=== PATIENT | female | born 1990 | race African-American/Black ===

== ENCOUNTER 2017-12-08 08:47 | Emergency (ER) | payer OTHER ==
[~2017-12-08] VITALS: Ht 157.5 cm; Wt 70.3 kg
[~2017-12-08 08:47] MED LIST: ACETAMINOPHEN325 M1 PO; BACTRIM DS TAB1 EACH PO; CARVEDILOL3.125 MG PO; IRON325; IRON325 PO; LEVOTHYROXIN0.025 MG PO; LEVOTHYROXIN0.112 M1; LEVOTHYROXINE0.05 MG; LOPRESSOR25 PO; MACROBID 100 M100 M1 PO; MACROBID 100 M100 M3 PO; NOHOMEMEDICATIONS; PHENAZOPYRIDIN200 M2 PO; PRENATAL PO; PROAIR HFA8.5 GM IH; PROPRANOLOL 1010 M1 PO; TAPAZOLE10 MG PO; TESSALON PERLE100 MG PO; ZANTAC 150MG T150 M1 PO; ZOFRAN ODT4 MG PO; ZOFRAN4 MG PO; ZPAK PO
[2017-12-08 09:15] LABS: URINE BILIRUBIN NEGATIVE (Negative); URINE BLOOD 3+ (Negative); URINE CLARITY CLOUDY; URINE GLUCOSE-RANDOM* NEGATIVE (Negative); URINE KETONES NEGATIVE (Negative); URINE PROTEIN (DIPSTICK) 2+ (Negative); URINE SPECIFIC GRAVITY >= 1.030 (1.005-1.035); URINE UROBILINOGEN 0.2 E.U./dl (0.2-1.0)
[2017-12-08 09:19] LABS: URINE COLOR DARK YELLOW; URINE LEUKOCYTES-REFLEX 2+ (Negative); URINE NITRITE-REFLEX POSITIVE (Negative)
[2017-12-08 09:44] LABS: CASTS None Seen /LPF (None Seen); CRYSTALS None Seen /LPF (None Seen); SQUAMOUS 0-3 Few /LPF (0-3); URINE RBC >20 Many /HPF (0-2); YEAST-REFLEX Present (None Seen)
[2017-12-08] MEDS ORDERED: PHENAZOPYRIDIN200 M2 PO (10:02)
[2017-12-08] MEDS ORDERED: KEFLEX500 M1 PO (10:02)
== END 2017-12-08 10:21 | disposition home or self-care (01) ==
LOC: ER 08:47
PROVIDERS: Physician Assistant
DX: N39.0 Urinary tract infection, site not specified (principal); E05.00 Thyrotoxicosis with diffuse goiter without thyrotoxic crisis or storm; F17.210 Nicotine dependence, cigarettes, uncomplicated

== ENCOUNTER 2019-06-18 13:09 | Emergency (ER) | payer OTHER ==
[~2019-06-18] VITALS: Ht 157.5 cm; Wt 77.1 kg
[~2019-06-18 13:09] MED LIST changes: +KEFLEX500 M1 PO
[2019-06-18] MEDS ORDERED: MIRENA1 EACH IY (13:26)
[2019-06-18 14:13] LABS: ABSOLUTE NEUTROPHILS 4.3 thou/uL (1.4-8.2); BASOPHILS 0.8 % (0.0-2.0); EOSINOPHILS 3.4 % (0.0-3.0); HEMATOCRIT 33.7 % (37.0-47.0); HEMOGLOBIN 11.2 gm/dL (12.0-15.0); LYMPHOCYTES 27.9 % (24.0-44.0); MCH 27.9 pg (26.0-34.0); MCHC 33.3 g/dL (28.0-37.0); MCV 83.7 fL (80.0-100.0); MONOCYTES 5.5 % (1.0-8.0); PLATELET COUNT 191 thou/uL (150-400); POLYS 62.4 % (36.0-66.0); RBC 4.02 mil/uL (4.20-5.00); RDW 13.7 % (10.5-14.5); WBC 6.9 thou/uL (4.0-11.0)
[2019-06-18 14:28] LABS: ANION GAP 9 mmol/L (7-16); BUN 13 mg/dL (7-18); CALCIUM 8.8 mg/dL (8.5-10.1); CHLORIDE 104 mmol/L (98-107); CO2 27 mmol/L (21-32); CREATININE 0.7 mg/dL (0.6-1.0); GLUCOSE 86 mg/dL (74-106); POTASSIUM 3.6 mmol/L (3.5-5.1); SODIUM 140 mmol/L (136-145)
[2019-06-18 14:37] LABS: ALBUMIN 3.4 g/dL (3.4-5.0); SGOT 28 U/L (15-37); SGPT 22 U/L (30-65); TOTAL BILIRUBIN 0.4 mg/dL (<0.1-1.0); TOTAL PROTEIN 6.7 g/dL (6.4-8.2); TROPONIN-I <0.06 ng/mL (<0.06)
[2019-06-18] MEDS ORDERED: CARAFATE 1 GM TA1 G1 PO (15:59)
[2019-06-18] MEDS ORDERED: OMEPRAZOLE 20 M20 M1 PO (15:59)
[2019-06-18 16:02] VITALS: BP 111/66
[2019-06-19] MEDS ORDERED: PREDNISONE 20 M20 MG PO (12:15)
[2019-06-19] MEDS ORDERED: PRILOSEC OTC20 MG PO (12:15)
--- NOTE | 2019-06-20 11:20 | EKG ---
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1990 Requested By: Nghia Boyd Order Number: [id number] MD: Luis Barrios Measurements Intervals [place] Rate: 68 P: 56 [place]: 156 QRS: 67 QRSD: 87 T: -9 QT: 404 QTc: 430 Interpretive Statements Sinus rhythm Nonspecific T abnormalities, anterior leads Compared to ECG 10/11/2015 19:01:58 Sinus tachycardia no longer present Right-axis deviation no longer present T-wave abnormality still present Electronically Signed On 06-20-2019 11:20:08 [employer] by Luis Barrios [email or web address] <ELECTRONICALLY SIGNED> By: Luis Barrios MD 06/20/19 1120 1312 1312 Luis Barrios MD /EPI
== END 2019-06-18 16:16 | disposition home or self-care (01) ==
LOC: ER 13:09
PROVIDERS: Physician Assistant
DX: K21.9 Gastro-esophageal reflux disease without esophagitis (principal); R07.89 Other chest pain; F17.210 Nicotine dependence, cigarettes, uncomplicated

== ENCOUNTER 2019-06-19 11:05 | Emergency (ER) | payer OTHER ==
[~2019-06-19] VITALS: Ht 157.5 cm; Wt 77.1 kg
[~2019-06-19 11:05] MED LIST changes: +CARAFATE 1 GM TA1 G1 PO; +MIRENA1 EACH IY; +OMEPRAZOLE 20 M20 M1 PO
[2019-06-19] MEDS ORDERED: PRILOSEC OTC20 MG PO (12:15)
[2019-06-19] MEDS ORDERED: PREDNISONE 20 M20 MG PO (12:15)
[2019-06-19 12:43] VITALS: BP 96/48
--- NOTE | 2019-06-20 11:23 | EKG ---
[address] [address] ELECTROCARDIOGRAM REPORT Name: LURDES KEARNS [id number] Admission: 06/19/19 Attend Phys: Discharge: 06/19/19 Date of : [birth year] Report #: [id number] THIS REPORT FOR: //name// 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1990 Requested By: Deng Crawford Order Number: [id number] MD: Luis Barrios Measurements Intervals [place] Rate: 87 P: 69 [place]: 149 QRS: 64 QRSD: 94 T: -27 QT: 384 QTc: 462 Interpretive Statements Sinus rhythm Borderline low voltage, extremity leads Nonspecific T abnrm, anterolateral leads Baseline wander in lead(s) V3 Compared to ECG 10/11/2015 19:01:58 Sinus tachycardia no longer present Right-axis deviation no longer present T-wave abnormality no longer present Electronically Signed On 06-20-2019 11:23:30 CERTIFIED MIDWIFE by Luis Barrios [email or web address] <ELECTRONICALLY SIGNED> By: Luis Barrios MD 06/20/19 1123 1114 1114 Luis Barrios MD /EPI
== END 2019-06-19 12:58 | disposition home or self-care (01) ==
LOC: ER 11:05
DX: K20.9 Esophagitis, unspecified (principal); E05.00 Thyrotoxicosis with diffuse goiter without thyrotoxic crisis or storm; F17.210 Nicotine dependence, cigarettes, uncomplicated; Z86.73 Personal history of transient ischemic attack (TIA), and cerebral infarction without residual deficits

== ENCOUNTER 2019-07-10 11:18 | Emergency (ER) | payer OTHER ==
[~2019-07-10] VITALS: Ht 157.5 cm; Wt 77.1 kg
[~2019-07-10 11:18] MED LIST changes: +PREDNISONE 20 M20 MG PO; +PRILOSEC OTC20 MG PO
[2019-07-10 11:45] LABS: URINE BLOOD 3+ (Negative); URINE CLARITY CLEAR; URINE COLOR YELLOW; URINE GLUCOSE-RANDOM* NEGATIVE (Negative); URINE KETONES 2+ (Negative); URINE LEUKOCYTES-REFLEX NEGATIVE (Negative); URINE NITRITE-REFLEX NEGATIVE (Negative); URINE PROTEIN (DIPSTICK) 1+ (Negative); URINE SPECIFIC GRAVITY >= 1.030 (1.005-1.035); URINE UROBILINOGEN 0.2 E.U./dl (0.2-1.0)
[2019-07-10 11:54] LABS: ABSOLUTE NEUTROPHILS 2.2 thou/uL (1.4-8.2); BASOPHILS 1.6 % (0.0-2.0); HEMATOCRIT 43.5 % (37.0-47.0); HEMOGLOBIN 14.2 gm/dL (12.0-15.0); LYMPHOCYTES 35.3 % (24.0-44.0); MCHC 32.7 g/dL (28.0-37.0); MCV 85.7 fL (80.0-100.0); MONOCYTES 9.5 % (1.0-8.0); PLATELET COUNT 201 thou/uL (150-400); POLYS 52.6 % (36.0-66.0); RBC 5.08 mil/uL (4.20-5.00); RDW 14.5 % (10.5-14.5); WBC 4.2 thou/uL (4.0-11.0)
[2019-07-10 11:57] LABS: CALCIUM 8.8 mg/dL (8.5-10.1)
[2019-07-10 11:58] LABS: ICTOTEST (BILI CONFIRMATORY) Negative (Negative); URINE BILIRUBIN NEGATIVE (Negative)
[2019-07-10 12:00] LABS: BACTERIA-REFLEX None Seen /HPF (None Seen); CASTS None Seen /LPF (None Seen); CRYSTALS None Seen /LPF (None Seen); MUCUS >6 Heavy strn/LPF (None Seen); SQUAMOUS 0-3 Few /LPF (0-3); URINE RBC 3-10 Few /HPF (0-2); URINE WBC-REFLEX 0-5 Rare /HPF (0-5)
[2019-07-10 12:03] LABS: ALBUMIN 3.8 g/dL (3.4-5.0); POTASSIUM 3.9 mmol/L (3.5-5.1); TOTAL PROTEIN 8.1 g/dL (6.4-8.2)
[2019-07-10] MEDS ORDERED: FLAGYL500 M1 PO (13:03)
[2019-07-10] MEDS ORDERED: ZOFRAN ODT4 MG PO (13:03)
[2019-07-10 13:45] VITALS: BP 106/68
== END 2019-07-10 13:45 | disposition home or self-care (01) ==
LOC: ER 11:18
PROVIDERS: Physician Assistant
DX: N76.0 Acute vaginitis (principal); A59.9 Trichomoniasis, unspecified; R11.2 Nausea with vomiting, unspecified; F17.210 Nicotine dependence, cigarettes, uncomplicated

== ENCOUNTER 2019-07-21 11:26 | Emergency (ER) | payer OTHER ==
[~2019-07-21] VITALS: Ht 157.5 cm; Wt 77.1 kg
[~2019-07-21 11:26] MED LIST changes: +FLAGYL500 M1 PO
[2019-07-21 13:15] VITALS: BP 104/46
== END 2019-07-21 13:16 | disposition home or self-care (01) ==
LOC: ER 11:26
DX: T19.2XXA Foreign body in vulva and vagina, initial encounter (principal); F17.210 Nicotine dependence, cigarettes, uncomplicated; Z79.899 Other long term (current) drug therapy; Y92.89 Other specified places as the place of occurrence of the external cause

== ENCOUNTER 2019-10-15 18:47 | Emergency (ER) | payer OTHER ==
[~2019-10-15] VITALS: Ht 157.5 cm; Wt 74.8 kg
[2019-10-15] MEDS ORDERED: VENTOLIN HFA 1818 GM INH (20:26)
[2019-10-15 23:21] VITALS: BP 114/71
== END 2019-10-15 23:21 | disposition home or self-care (01) ==
LOC: ER 18:47
DX: J06.9 Acute upper respiratory infection, unspecified (principal); F17.210 Nicotine dependence, cigarettes, uncomplicated